=== PATIENT | female | born 1955 | race Caucasian/White ===

== ENCOUNTER → 2016-10-14 | Outpatient (CLI) | payer MEDICARE, BC ==
[~2016-10-14] MED LIST: ALEVE LIQCAPS PO; ALLEGRA 180MG180 MG PO; AMBIEN 10MG10 MG PO; ATIVAN 1MG T1 MG/TAB PO; CRESTOR 10MG10 MG PO; DAZIDOX10 MG PO; FERROUS SU325 MG/TAB PO; FLONASE NASAL S16 GM NS; FLONASEALLERGY NS; INTEGRA PLUS1 CAP PO; LEVOXYL0.1 MG PO; LEVOXYL0.125 MG PO; LIORESAL 1010 MG/TAB PO; LIPITOR20 MG PO; LOMOTIL 0.025 M1 TAB PO; MELAT3MGTAB PO; METOPROLOL TA37.5 MG PO; MULTIPLE VITAMI1 CAP PO; PERCOCET 325 MG1 TA2 PO; PHENERGAN25 MG RC; PREMARIN .3MG0.3 MG PO; PRIL40 PO; PRILOSEC 20MG20 MG PO; SEE INSTRUCTIONS IT; SINGULAIR 110 MG/TAB PO; See Instructions IT; TOPROL XL 25MG25 MG PO; ULTRAM ER100 MG PO; VALIUM 10MG10 MG/TAB PO; VENTOLIN0.09 MG IH; VITAMIN B121000 MC2 SL; XANAX .25M0.25 MG/TA PO; ZYRTEC ALLERGY10 MG PO
== END ==
LOC: MC.RAD 14:20
DX: Z12.31 Encounter for screening mammogram for malignant neoplasm of breast (principal); Z80.3 Family history of malignant neoplasm of breast

== ENCOUNTER 2016-11-05 13:27 | Inpatient (IN) | payer MEDICARE, BC ==
[~2016-11-05] VITALS: Ht 149.9 cm; Wt 63.1 kg
[2016-11-05] VITALS (310 sets, daily range): BP systolic 98–102; BP diastolic 57–60; PULSE 70–78; TEMP 96.9–97.1; O2SAT 92–100
[~2016-11-05 13:27] MED LIST changes: -ALEVE LIQCAPS PO; -CRESTOR 10MG10 MG PO; -FERROUS SU325 MG/TAB PO; -FLONASE NASAL S16 GM NS; -FLONASEALLERGY NS; -INTEGRA PLUS1 CAP PO; -LEVOXYL0.125 MG PO; -LIPITOR20 MG PO; -MELAT3MGTAB PO; -METOPROLOL TA37.5 MG PO; -MULTIPLE VITAMI1 CAP PO; -PHENERGAN25 MG RC; -PRIL40 PO; -PRILOSEC 20MG20 MG PO; -TOPROL XL 25MG25 MG PO; -ZYRTEC ALLERGY10 MG PO
[2016-11-05] MEDS ORDERED: LIPITOR20 MG PO (13:52)
[2016-11-05] MEDS ORDERED: CRESTOR 10MG10 MG PO (13:58)
[2016-11-05] MEDS ORDERED: INTEGRA PLUS1 CAP PO (13:58)
[2016-11-05 14:05] LABS: BASO # 0.1 (0.0-0.2); BASO % 0.4 % (0.0-2.0); EOS # 0.2 (0.0-0.7); EOS % 1.3 % (0-4.0); GRAN # 10.9 (1.4-6.5); GRAN % 80.2 % (42.2-75.2); LYMPH # 1.1 (1.2-3.4); LYMPH % 8.2 % (20.0-51.0); MEAN CELL VOLUME 85 fl (80.0-100.0); MEAN CORPUSCULAR HGB CONC 34 g/dl (33.0-37.0); MEAN PLATELET VOLUME 9.2 fl (7.4-10.4); MONO # 1.2 (0.1-0.6); MONO % 8.9 % (1.7-9.3); PLATELET COUNT 383 K/mm3 (130-400); RED BLOOD COUNT 3.36 M/mm3 (4.10-5.30); REDCELL DISTRIBUTION WIDTH-CV 12.4 % (11.5-14.5); WHITE BLOOD COUNT 13.6 K/mm3 (4.8-10.8)
[2016-11-05 14:09] LABS: HEMATOCRIT 28.4 % (37.0-47.0); HEMOGLOBIN 9.5 g/dl (12.5-16.0); MEAN CORPUSCULAR HEMOGLOBIN 28 pg (27.0-31.0)
[2016-11-05 14:10] LABS: PARTIAL THROMBOPLASTIN TIME 26.9 SECONDS (26.0-37.0); PROTHROMBIN TIME 11.3 SECONDS (9.7-12.8)
[2016-11-05 14:29] LABS: ADJUSTED CALCIUM 9.6 mg/dL (8.4-10.2); ALANINE AMINOTRANSFERASE 25 U/L (9-52); ALBUMIN 3.4 gm/dL (3.5-5.0); ALKALINE PHOSPHATASE 77 U/L (50-136); ANION GAP 11 mmol/L (7-16); BILIRUBIN,TOTAL 0.7 mg/dL (0.0-1.0); BLOOD UREA NITROGEN 12 mg/dL (7-17); CALCIUM 9.1 mg/dL (8.4-10.2); CARBON DIOXIDE 19 mmol/L (22-30); CHLORIDE 95 mmol/L (98-107); GLUCOSE 94 mg/dL (74-106); SALICYLATE 2.7 mg/dL; SODIUM 125 mmol/L (137-145); TOTAL PROTEIN 6.1 gm/dL (6.4-8.2)
[2016-11-05 14:34] LABS: ACETAMINOPHEN < 10 ug/mL (10-30)
[2016-11-05 14:40] LABS: TROPONIN-I < 0.012 ng/mL (0.000-0.034)
[2016-11-05 14:45] LABS: AMPHETAMINE URINE NEGATIVE; BARBITURATES URINE NEGATIVE; BENZODIAZEPINES URINE POSITIVE; BUPRENORPHINE URINE NEGATIVE; METHADONE URINE NEGATIVE; OPIATES URINE POSITIVE; OXYCODONE URINE POSITIVE; PHENCYCLIDINE URINE NEGATIVE; PROPOXYPHENE URINE NEGATIVE; THC CANNABINOIDS URINE NEGATIVE
[2016-11-05 14:46] LABS: PH 5 (5-8); SQUAMOUS EPITHELIAL 0-2 /hpf; URINE APPEARANCE Clear; URINE BACTERIA None Seen /hpf; URINE BILIRUBIN Negative (NEGATIVE); URINE BLOOD Negative (NEGATIVE); URINE COLOR Yellow; URINE GLUCOSE Negative (NEGATIVE); URINE KETONE Negative (NEGATIVE); URINE RBC 0-2 /hpf; URINE UROBILINOGEN Negative (NEGATIVE); URINE WBC 0-2 /hpf
[2016-11-05 15:26] LABS: ARTERIAL BLD GAS TCO2 CT 18.7; ARTERIAL BLOOD GAS BASE EXCESS -7.8 (-2-2); ARTERIAL BLOOD GAS HCO3 17.6 meq/L (22-26); ARTERIAL BLOOD GAS PHT 7.31 C (7.35-7.45); ARTERIAL BLOOD GAS pH 7.31 (7.35-7.45); OXYHEMOGLOBIN 96.6 %
[2016-11-05 15:27] LABS: ARTERIAL BLOOD GAS PO2 137.6 mmHg (80-100); ARTERIAL BLOOD GAS PO2T 137.6 (80-100); ATS? YES
[2016-11-05 18:50] LABS: CREATINE KINASE 254 U/L (30-135)
[2016-11-05 20:46] LABS: CALCIUM 8.1 mg/dL (8.4-10.2); CREATININE, serum 0.65 mg/dL (0.52-1.25)
[2016-11-05 20:52] LABS: ALLEN TEST YES; ALLENS TEST RESULT PASS; ARTERIAL BLD GAS O2 SATURATION 97.9 % (92-100); ARTERIAL BLD GAS TCO2 CT 20.6; ARTERIAL BLOOD GAS BASE EXCESS -6.6 (-2-2); ARTERIAL BLOOD GAS HCO3 19.3 meq/L (22-26); ARTERIAL BLOOD GAS PO2 132.7 mmHg (80-100); ATS? YES
[2016-11-06] VITALS (1004 sets, daily range): BP systolic 105–147; BP diastolic 60–89; PULSE 82–117; TEMP 97.1–100.6; O2SAT 71–100
[2016-11-06 02:07] LABS: BASO % 0.4 % (0.0-2.0); EOS # 0.1 (0.0-0.7); EOS % 0.8 % (0-4.0); GRAN # 6.9 (1.4-6.5); GRAN % 76.8 % (42.2-75.2); HEMATOCRIT 31.8 % (37.0-47.0); HEMOGLOBIN 10.2 g/dl (12.5-16.0); LYMPH # 1.1 (1.2-3.4); LYMPH % 11.6 % (20.0-51.0); MEAN CELL VOLUME 88 fl (80.0-100.0); MEAN CORPUSCULAR HEMOGLOBIN 28 pg (27.0-31.0); MEAN CORPUSCULAR HGB CONC 32 g/dl (33.0-37.0); MONO # 0.9 (0.1-0.6); MONO % 9.4 % (1.7-9.3); PLATELET COUNT 456 K/mm3 (130-400); REDCELL DISTRIBUTION WIDTH-CV 12.7 % (11.5-14.5)
[2016-11-06 02:09] LABS: ARTERIAL BLOOD GAS pH 7.34 (7.35-7.45)
[2016-11-06 02:10] LABS: ALLEN TEST YES; ALLENS TEST RESULT PASS; ARTERIAL BLD GAS O2 SATURATION 98.4 % (92-100); ARTERIAL BLD GAS TCO2 CT 18.4; ARTERIAL BLOOD GAS BASE EXCESS -7.6 (-2-2); ARTERIAL BLOOD GAS HCO3 17.4 meq/L (22-26); ARTERIAL BLOOD GAS PO2 171.9 mmHg (80-100); ATS? YES
[2016-11-06 02:11] LABS: PROTHROMBIN TIME 11.3 SECONDS (9.7-12.8)
[2016-11-06 02:14] LABS: PARTIAL THROMBOPLASTIN TIME 26.2 SECONDS (26.0-37.0)
[2016-11-06 02:18] LABS: CALCIUM 8.7 mg/dL (8.4-10.2); CREATININE, serum 0.73 mg/dL (0.52-1.25); POTASSIUM 3.9 mmol/L (3.4-5.0)
[2016-11-06 02:44] LABS: THYROXINE (T4)-TOTAL 12.1 ug/dL (5.5-11.0)
[2016-11-06 02:49] LABS: THYROID STIMULATING HORMONE 0.056 uIU/mL (0.465-4.680)
[2016-11-06 04:48] LABS: ADJUSTED CALCIUM 9.4 mg/dL (8.4-10.2); ALBUMIN 3.1 gm/dL (3.5-5.0); BILIRUBIN,TOTAL 0.5 mg/dL (0.0-1.0); TOTAL PROTEIN 5.9 gm/dL (6.4-8.2)
[2016-11-06 10:33] LABS: CALCIUM 8.3 mg/dL (8.4-10.2); CREATININE, serum 0.58 mg/dL (0.52-1.25); POTASSIUM 3.4 mmol/L (3.4-5.0)
[2016-11-06 16:18] LABS: CALCIUM 8.5 mg/dL (8.4-10.2); CREATININE, serum 0.56 mg/dL (0.52-1.25); POTASSIUM 3.3 mmol/L (3.4-5.0)
[2016-11-06] MEDS ORDERED: METOPROLOL TA37.5 MG PO (20:11)
[2016-11-06 20:16] LABS: ANION GAP 10 mmol/L (7-16); CALCIUM 8.5 mg/dL (8.4-10.2); CARBON DIOXIDE 22 mmol/L (22-30); CHLORIDE 111 mmol/L (98-107); CREATININE, serum 0.51 mg/dL (0.52-1.25); GLUCOSE 96 mg/dL (74-106); SODIUM 143 mmol/L (137-145)
[2016-11-06 20:20] LABS: BLOOD UREA NITROGEN < 2 mg/dL (7-17); POTASSIUM 2.9 mmol/L (3.4-5.0)
[2016-11-07] VITALS (653 sets, daily range): BP systolic 126–149; BP diastolic 53–81; PULSE 90–103; TEMP 97.8–98.7; O2SAT 71–100
[2016-11-07 04:30] LABS: BASO % 0.4 % (0.0-2.0); GRAN # 8.7 (1.4-6.5); GRAN % 76.7 % (42.2-75.2); LYMPH # 1.1 (1.2-3.4); LYMPH % 9.7 % (20.0-51.0); MEAN CELL VOLUME 88 fl (80.0-100.0); MEAN CORPUSCULAR HGB CONC 32 g/dl (33.0-37.0); MEAN PLATELET VOLUME 8.3 fl (7.4-10.4); MONO # 1.4 (0.1-0.6); MONO % 12.5 % (1.7-9.3); RED BLOOD COUNT 2.78 M/mm3 (4.10-5.30); REDCELL DISTRIBUTION WIDTH-CV 13.1 % (11.5-14.5); WHITE BLOOD COUNT 11.3 K/mm3 (4.8-10.8)
[2016-11-07 04:39] LABS: ANION GAP 11 mmol/L (7-16); CALCIUM 8.5 mg/dL (8.4-10.2); CARBON DIOXIDE 23 mmol/L (22-30); CHLORIDE 109 mmol/L (98-107); CREATININE, serum 0.49 mg/dL (0.52-1.25); GLUCOSE 91 mg/dL (74-106); POTASSIUM 3.4 mmol/L (3.4-5.0); SODIUM 142 mmol/L (137-145)
[2016-11-07 04:40] LABS: BLOOD UREA NITROGEN < 2 mg/dL (7-17)
[2016-11-07 04:43] LABS: HEMATOCRIT 24.5 % (37.0-47.0); MEAN CORPUSCULAR HEMOGLOBIN 28 pg (27.0-31.0); PLATELET COUNT 343 K/mm3 (130-400)
[2016-11-07 04:44] LABS: HEMOGLOBIN 7.9 g/dl (12.5-16.0)
[2016-11-07 12:26] LABS: HEMATOCRIT 24.6 % (37.0-47.0); HEMOGLOBIN 7.9 g/dl (12.5-16.0)
[2016-11-08 04:32] VITALS: BP 142/73; PULSE 88; TEMP 98.3
[2016-11-08 07:40] VITALS: BP 141/85; PULSE 99; TEMP 97.9
[2016-11-08 07:51] LABS: BASO % 0.4 % (0.0-2.0); EOS # 0.2 (0.0-0.7); GRAN # 7.2 (1.4-6.5); GRAN % 76.6 % (42.2-75.2); MEAN CELL VOLUME 88 fl (80.0-100.0); MEAN CORPUSCULAR HGB CONC 32 g/dl (33.0-37.0); MEAN PLATELET VOLUME 9.1 fl (7.4-10.4); MONO # 0.9 (0.1-0.6); PLATELET COUNT 378 K/mm3 (130-400); RED BLOOD COUNT 2.84 M/mm3 (4.10-5.30); REDCELL DISTRIBUTION WIDTH-CV 13.1 % (11.5-14.5); RETIC % 3.2 % (0.5-3.52); WHITE BLOOD COUNT 9.4 K/mm3 (4.8-10.8)
[2016-11-08 08:05] LABS: HEMATOCRIT 25.1 % (37.0-47.0); MEAN CORPUSCULAR HEMOGLOBIN 28 pg (27.0-31.0)
[2016-11-08 08:25] LABS: ADJUSTED CALCIUM 9.4 mg/dL (8.4-10.2); ALBUMIN 2.7 gm/dL (3.5-5.0); BILIRUBIN,TOTAL 0.4 mg/dL (0.0-1.0); CALCIUM 8.4 mg/dL (8.4-10.2); CREATININE, serum 0.49 mg/dL (0.52-1.25); MAGNESIUM 1.8 mg/dL (1.6-2.3); TOTAL PROTEIN 5.2 gm/dL (6.4-8.2)
[2016-11-08] MEDS ORDERED: FERROUS SU325 MG/TAB PO (09:57)
[2016-11-08] MEDS ORDERED: PHENERGAN25 MG RC (09:59)
[2016-11-08] MEDS ORDERED: FLONASE NASAL S16 GM NS (09:59)
[2016-11-08 12:02] VITALS: BP 147/74; PULSE 80; TEMP 97.7
[2016-11-08 15:56] VITALS: BP 132/73; PULSE 87; TEMP 97.8
[2016-11-08 19:54] VITALS: BP 154/80; PULSE 88; TEMP 98.4
[2016-11-08 23:32] VITALS: BP 153/83; PULSE 94; TEMP 98.5
[2016-11-09 03:17] VITALS: BP 147/79; PULSE 91; TEMP 98.7
[2016-11-09 07:47] VITALS: BP 148/77; PULSE 108; TEMP 97.9
[2016-11-09 07:54] LABS: CALCIUM 8.9 mg/dL (8.4-10.2); CREATININE, serum 0.59 mg/dL (0.52-1.25); MAGNESIUM 1.9 mg/dL (1.6-2.3); POTASSIUM 3.6 mmol/L (3.4-5.0)
== END 2016-11-09 11:20 | disposition home health service (06) | DRG 917 ==
LOC: COL.ER 13:27 → ICU 15:23 → MEDICAL 11-07 11:22 → ICU 11-07 11:22 → MEDICAL 11-07 11:22
PROVIDERS: Anesthesiology Critical Care Medicine; Emergency Medicine; Internal Medicine; Internal Medicine Pulmonary Disease
PROC: 02HV33Z Insertion of Infusion Device into Superior Vena Cava, Percutaneous Approach (ICD-10-PCS; principal; 2016-11-06)
DX: T42.4X1A Poisoning by benzodiazepines, accidental (unintentional), initial encounter (principal); R40.20 Unspecified coma; E87.1 Hypo-osmolality and hyponatremia; M54.16 Radiculopathy, lumbar region; F41.9 Anxiety disorder, unspecified; G89.29 Other chronic pain; D50.9 Iron deficiency anemia, unspecified
CPT/HCPCS: 99223-AI; 99232-AI; 99233-AI; 99239; A4315; C1751; C9113; J1644; J1885; J2310; J3480; J7030; J7040

== ENCOUNTER 2017-01-02 08:11 | Day surgery (SDC) | payer MEDICARE, BC ==
[~2017-01-02] VITALS: Ht 149.9 cm; Wt 58.1 kg
[~2017-01-02 08:11] MED LIST changes: +CRESTOR 10MG10 MG PO; +FERROUS SU325 MG/TAB PO; +FLONASE NASAL S16 GM NS; +INTEGRA PLUS1 CAP PO; +LIPITOR20 MG PO; +METOPROLOL TA37.5 MG PO; +PHENERGAN25 MG RC
[2017-01-02] MEDS ORDERED: LIORESAL 1010 MG/TAB PO (08:52)
[2017-01-02] MEDS ORDERED: FLONASEALLERGY NS (08:52)
[2017-01-02] MEDS ORDERED: LEVOXYL0.125 MG PO (08:53)
[2017-01-02] MEDS ORDERED: ATIVAN 1MG T1 MG/TAB PO (08:54)
[2017-01-02] MEDS ORDERED: MELAT3MGTAB PO (08:54)
[2017-01-02] MEDS ORDERED: TOPROL XL 25MG25 MG PO (08:55)
[2017-01-02] MEDS ORDERED: MULTIPLE VITAMI1 CAP PO (08:55)
[2017-01-02] MEDS ORDERED: PRILOSEC 20MG20 MG PO (08:56)
[2017-01-02] MEDS ORDERED: ALEVE LIQCAPS PO (08:56)
[2017-01-02 09:08] VITALS: BP 142/82; PULSE 112; TEMP 98
[2017-01-02 09:50] VITALS: BP 114/63; PULSE 99; TEMP 98
[2017-01-02 10:05] VITALS: BP 122/92; PULSE 101
[2017-01-02 10:20] VITALS: BP 142/96; PULSE 96
[2017-01-02 13:31] VITALS: BP 114/77; PULSE 96
== END 2017-01-02 10:40 | disposition home or self-care (01) ==
LOC: SDCO 08:11
DX: K29.80 Duodenitis without bleeding (principal); K25.9 Gastric ulcer, unspecified as acute or chronic, without hemorrhage or perforation; K62.89 Other specified diseases of anus and rectum; R11.11 Vomiting without nausea; I10 Essential (primary) hypertension; E07.9 Disorder of thyroid, unspecified; K21.9 Gastro-esophageal reflux disease without esophagitis; Z87.11 Personal history of peptic ulcer disease; Z79.899 Other long term (current) drug therapy
CPT/HCPCS: OP; J2405; J2704; J7030

== ENCOUNTER 2017-03-27 08:33 | Day surgery (SDC) | payer MEDICARE, BC ==
[~2017-03-27] VITALS: Ht 154.9 cm; Wt 60.0 kg
[~2017-03-27 08:33] MED LIST changes: +ALEVE LIQCAPS PO; +FLONASEALLERGY NS; +LEVOXYL0.125 MG PO; +MELAT3MGTAB PO; +MULTIPLE VITAMI1 CAP PO; +PRILOSEC 20MG20 MG PO; +TOPROL XL 25MG25 MG PO
[2017-03-27 09:02] VITALS: BP 118/78; PULSE 86; TEMP 98.3
[2017-03-27] MEDS ORDERED: LIPITOR20 MG PO (09:14)
[2017-03-27] MEDS ORDERED: ZYRTEC ALLERGY10 MG PO (09:16)
[2017-03-27] MEDS ORDERED: VALIUM 10MG10 MG/TAB PO (09:17)
[2017-03-27] MEDS ORDERED: PRIL40 PO (09:20)
[2017-03-27 09:53] VITALS: BP 115/64; PULSE 79; TEMP 97.4
[2017-03-27 10:00] VITALS: BP 113/78; PULSE 75
[2017-03-27 10:15] VITALS: BP 111/58; PULSE 80
[2017-03-27 10:30] VITALS: BP 107/62; PULSE 70
[2017-03-27 11:06] VITALS: BP 113/76; PULSE 82
== END 2017-03-27 10:50 | disposition home or self-care (01) ==
LOC: SDCO 08:33
DX: K29.50 Unspecified chronic gastritis without bleeding (principal); K31.89 Other diseases of stomach and duodenum; K31.7 Polyp of stomach and duodenum; E78.5 Hyperlipidemia, unspecified; K21.9 Gastro-esophageal reflux disease without esophagitis; I10 Essential (primary) hypertension; J45.909 Unspecified asthma, uncomplicated; E03.9 Hypothyroidism, unspecified; D64.9 Anemia, unspecified; Z90.710 Acquired absence of both cervix and uterus
CPT/HCPCS: OP; J2704; J7120